=== PATIENT | female | born 1985 | race Caucasian/White ===

== ENCOUNTER 2018-10-08 00:19 | Outpatient (CLI) | payer SELFPAY, MEDICAID | END 2018-10-08 06:40 | disposition home or self-care (01) | LOC: OBT 00:19 → L-D 00:19 → OBT 06:40 | DX: O26.893 Other specified pregnancy related conditions, third trimester (principal); Z3A.39 39 weeks gestation of pregnancy; R10.33 Periumbilical pain | CPT/HCPCS: 76815; 76818 ==

== ENCOUNTER 2018-10-08 06:48 | Emergency (ER) | payer SELFPAY ==
[2018-10-08] MEDS: ACETAMINOPHEN 325 MG TAB PO (07:18)
== END 2018-10-08 07:58 | disposition home or self-care (01) ==
LOC: E/R 07:58
DX: O99.613 Diseases of the digestive system complicating pregnancy, third trimester (principal); K42.9 Umbilical hernia without obstruction or gangrene; Z3A.39 39 weeks gestation of pregnancy
CPT/HCPCS: 99282